=== PATIENT | female | born 1975 | race Caucasian/White ===

== ENCOUNTER 2022-12-05 01:15 | Emergency (ER) | payer OTHER, SELFPAY ==
[2022-12-05 01:23] VITALS: BP 107/73; PULSE 74; RESP 20; TEMP 36.7; O2SAT 97; BMI 22.3
--- NOTE | 2022-12-05 01:35 | CRLHL7_ITS ---
For Patients: As a result of the Century Cures Act, medical imaging exams and procedure reports are released immediately into your electronic medical record. You may view this report before your referring provider. If you have questions, please contact your health care provider. Indication: Lower abdominal pain Technique: Postcontrast CT abdomen and pelvis. 63 cc Isovue 370 intravenous contrast. Please note that all CT scans at this facility use dose modulation, iterative reconstruction, and/or weight-based dosing when appropriate to reduce radiation dose to as low as reasonably achievable. Comparison: None Findings: Mild dependent areas of atelectasis/scarring noted bilaterally. No pleural effusion. No free intraperitoneal air. No 8 millimeter hypodensity periphery of the right lung likely representing hemangioma or cyst. Gallbladder is nondistended. No biliary obstruction. Normal pancreas. Spleen normal. No hiatal hernia. Normal adrenal glands. Nonobstructing stone lower pole right kidney measures 3.2 millimeters. Nonobstructing stone upper pole left kidney measures 4 millimeters. No perinephric stranding. No suspicious renal mass. 9 millimeter simple left renal cyst. Ureters and bladder are normal. Normal uterus. No adnexal mass. Trace right pelvic free fluid. No bowel obstruction. Appendix normal. No diverticulitis. Small umbilical hernia containing omental fat measuring less than 1 cm. No fracture. No adenopathy. Impression: Nonobstructing renal calculi bilaterally. No adnexal mass. Trace pelvic free fluid considered physiologic. Please note that all CT scans at this facility use dose modulation, iterative reconstruction, and/or weight-based dosing when appropriate to reduce radiation dose to as low as reasonably achievable. Dictated by Mariano Salgado MD @ 12/05/2022 8:48:31 AM (Electronically Signed)
[2022-12-05] MEDS: KETOROLAC 30 MG/ML inj IVP ×2 (01:46→06:21)
[2022-12-05] MEDS: 0.9 % SODIUM CHLORIDE 1000 ml 1,000 ML IV (01:50)
[2022-12-05 01:55] LABS: Basophils Absolute Auto 0.04 K/uL (0.00-0.30); Basophils Percent Auto 0.6 % (0.0-3.0); Eosinophils Absolute Auto 0.14 K/uL (0.00-0.50); Eosinophils Percent Auto 2.2 % (0.0-7.0); Hematocrit 36.7 % (33.0-51.0); Hemoglobin* 12.2 gm/dL (12.0-16.0); Immature Granulocytes Abs Auto 0.01 K/uL (0.00-0.30); Immature Granulocytes Pct Auto 0.2 %; Lymphocytes Absolute Auto 2.55 K/uL (0.90-2.90); Lymphocytes Percent Auto 40.6 % (20-44); Mean Corpuscular HGB Conc 33 gm/dL (32-36); Mean Corpuscular Hemoglobin 30 pg (26-34); Mean Corpuscular Volume 90 fL (80-100); Monocytes Percent Auto 7.2 % (0.0-11.0); Neutrophils Absolute Auto 3.09 K/uL (1.7-7.0); Neutrophils Percent Auto 49.2 % (42.0-72.0); Platelet Count* 289 K/uL (140-440); RDW Coefficient of Variation % 13.5 % (11.5-15.5); Red Blood Count 4.06 m/uL (4.00-5.20); Slide Review Reflex No; White Blood Count* 6.28 K/uL (4.50-11.00)
[2022-12-05 02:07] LABS: Chloride* 106 mmol/L (96-114)
[2022-12-05 02:08] LABS: Potassium* 3.6 mmol/L (3.6-5.1); Sodium* 137 mmol/L (135-149)
[2022-12-05 02:10] LABS: Creatinine* 0.7 mg/dL (0.5-1.5); Est. Creatinine Clearance* 83.07; Estimated Glomerular Filt Rate 108 ml/min
[2022-12-05 02:11] LABS: Alanine Aminotransferase* 14 U/L (4-35); Alkaline Phosphatase* 50 U/L (40-150); Aspartate Amino Transferase* 18 U/L (12-35); Bilirubin Total* 0.2 mg/dL (0.1-1.5); Blood Urea Nitrogen* 13 mg/dL (5-24); Calcium* 9.3 mg/dL (8.4-10.6); Carbon Dioxide* 22 mmol/L (20-32); Glucose* 92 mg/dL (60-115); Total Protein* 6.9 g/dL (6.0-8.3)
[2022-12-05 02:14] LABS: C Reactive Protein* 1.1 mg/dL (0.5-1.0)
--- NOTE | 2022-12-05 02:25 | ED_ITS ---
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 Due to have a hysterectomy for her issues coming up in the next kerry h, she lives in [facility], has no nausea no vomiting no change in her bowel habits denies any fevers chills or sweats, it hurts her walk, or bend over. Did not take any Tylenol or ibuprofen or anything else for this. But just tried to tough it out by working. MD elicited complaint: abdominal pain Pertinent past history: other (Ovarian cysts) Pain Consistency: constant Location: suprapubic and pelvis Severity: moderate Quality: fullness and sharp Radiation: none Migration to: no migration Exacerbating factors: movement Relieving factors: nothing Context: history of similar episodes Associated symptoms: denies other symptoms Related Data Hx Last Menstrual Period: History of tubal ligation Patient : No Home Medications Medication Instructions Recorded Confirmed levothyroxine 100 mcg tablet 50 mcg PO DAILY 12/05/22 12/05/22 (Synthroid) Allergies Allergy/AdvReac Type Severity Reaction Status Date / Time No Known Drug Allergies Allergy Verified 12/05/22 01:30 Review of Systems Status of ROS Reports: 10 or more systems reviewed and unremarkable except as noted in History and below PFSH [facility] Medical History (Updated 12/05/22 @ 07:11 by Isra Kuhn MD) Hypothyroidism ?E03.9 - Hypothyroidism, unspecified (ICD-10) Surgical History (Updated 12/05/22 @ 01:33 by Marisela Leger RN) History of conization of cervix ?Z98.890 - Other specified postprocedural states (ICD-10) Tubal ligation status ?Z98.51 - Tubal ligation status (ICD-10) Social History Non-prescribed substance use: denies use Exam Narrative: Exam Narrative: Patient is seen in room 5, she is in some moderate distress, pupils equal round reactive to light there is no scleral icterus or redness her TMs bilaterally are normal, oropharynx normal her neck is supple, her chest is clear heart sounds are normal. Abdomen shows tenderness in her lower abdominal region, quiet bowel sounds, no organomegaly is noted, no CVA tenderness. Moves all extremities independently and well. Const: Vital Signs, click to edit/add: Vital Signs - 24 hr 12/05/22 01:23 Temperature 98.1 F Pulse Rate [Pulse Oximeter] 74 Respiratory Rate 20 Blood Pressure [Ri ght Upper Arm] 107/73 Pulse Oximetry 97 Oxygen Delivery Me thod Room Air Documenting provider has reviewed patient's vital signs: yes Course Course Hospital Course: Discussed ultrasound with the radiologist, no evidence of significant ovarian i ssue, good blood flow, and small amount of fluid, this most likely represents the ruptured ovarian cyst. Discussed this with the patient we will send her home, with some pain medication, ibuprofen, and follow up with her primary care, Vital Signs Vital signs: Initial Vital Signs Temperature 98.1 F 12/05/22 01:23 Temperature Source Temporal Artery Scan 12/05/22 01:23 Pulse Rate 74 12/05/22 01:23 Respiratory Rate 20 12/05/22 01:23 Blood Pressure 107/73 12/05/22 01:23 Blood Pressure Mean 84 12/05/22 01:23 Pulse Oximetry 97 12/05/22 01:23 Oxygen Delivery Method Room Air 12/05/22 01:23 Vital Signs Temperature 98.1 F 12/05/22 01:23 Pulse Rate 74 12/05/22 01:23 Respiratory Rate 20 12/05/22 01:23 Blood Pressure 107/73 12/05/22 01:23 Pulse Oximetry 97 12/05/22 01:23 Oxygen Delivery Method Room Air 12/05/22 01:23 Temperature 98.1 F 12/05/22 01:23 Pulse Rate 74 12/05/22 01:23 Respiratory Rate 20 12/05/22 01:23 Blood Pressure 107/73 12/05/22 01:23 Pulse Oximetry 97 12/05/22 01:23 Oxygen Delivery Method Room Air 12/05/22 01:23 MDM - Abdominal Pain MDM Narrative Medical decision making narrative: During the evaluation of this patient I considered multiple differential diagnosis including life-threatening differentials which are appendicitis, a ortic aneurysm, mesenteric ischemia, bowel perforation, ectopic , volvulus and bowel obstruction, other differential diagnosis include but are not limited to inflammatory bowel disease, cholecystitis, pancreatitis, hepatitis, gastritis, GERD, diverticulitis, peptic ulcer disease, pyelonephritis/UTI, renal colic/stone, pelvic inflammatory disease, cervicitis, endometritis, intrauterine , dysfunctional uterine bleeding, ovarian cyst/torsion, spontaneous as well as other etiologies Medical Records Attestation: I reviewed the patient's medical records. Lab Data Labs: Lab Results 12/05/22 12/05/22 Range/Units 01:45 05:50 WBC 6.28 (4.50-11.00) K/uL RBC 4.06 (4.00-5.20) m/uL Hgb 12.2 (12.0-16.0) gm/dL Hct 36.7 (33.0-51.0) % MCV 90 (80-100) fL MCH 30 (26-34) pg MCHC 33 (32-36) gm/dL RDW Coeff of Anoop 13.5 (11.5-15.5) % Plt Count 289 (140-440) K/uL Neut % (Auto) 49.2 (42.0-72.0) % Lymph % (Auto) 40.6 (20-44) % [place] % (Auto) 7.2 (0.0-11.0) % Eos % (Auto) 2.2 (0.0-7.0) % Baso % (Auto) 0.6 (0.0-3.0) % Neut # (Auto) 3.09 (1.7-7.0) K/uL Lymph # (Auto) 2.55 (0.90-2.90) K/uL [place] # (Auto) 0.50 (0.00-0.90) K/UL Eos # (Auto) 0.14 (0.00-0.50) K/uL Baso # (Auto) 0.04 (0.00-0.30) K/uL Abs Immat Gran (auto) 0.01 (0.00-0.30) K/uL Imm/Tot Granulo (auto) 0.2 % Sodium 137 (135-149) mmol/L Potassium 3.6 (3.6-5.1) mmol/L Chloride 106 (96-114) mmol/L Carbon Dioxide 22 (20-32) mmol/L BUN 13 (5-24) mg/dL Creatinine 0.7 (0.5-1.5) mg/dL Estimated Creat Clear 83.07 Estimated GFR 108 ml/min Glucose 92 (60-115) mg/dL Calcium 9.3 (8.4-10.6) mg/dL Total Bilirubin 0.2 (0.1-1.5) mg/dL Direct Bilirubin 0.0 (0.0-0.5) mg/dL AST 18 (12-35) U/L ALT 14 (4-35) U/L Alkaline Phosphatase 50 (40-150) U/L C-Reactive Protein 1.1 H (0.5-1.0) mg/dL Total Protein 6.9 (6.0-8.3) g/dL Albumin 4.0 (3.3-5.0) g/dL Urine Color Yellow (Yellow) Urine Appearance Clear (Clear) Urine pH 6.0 (5.0-8.5) Ur Specific [place] 1.010 (1.000-1.030) Urine Protein Negative (Negative) Urine Glucose (UA) Negative (Negative) Urine Ketones Negative (Negative) Urine Blood Negative (Negative) Urine Nitrite Negative (Negative) Urine Bilirubin Negative (Negative) Urine Urobilinogen 0.2 (0.2-1.0) Ur Leukocyte Esterase Negative (Negative) Urine RBC 0-2 (0-2) Urine WBC 0-2 (0-5) Ur Squamous Epith Cells Moderate A (None-Few) Urine Bacteria Few A (None) Discharge Plan Discharge Clinical Impression: Ovarian cyst rupture, Abdominal pain Patient Disposition: Home, Self-Care Condition: Stable Instructions: Ovarian Cyst (ED), Abdominal Pain (ED) Additional Instructions: Home,rest and use of Ibuprofen, and or acetaminophen. Follow up with your provider. Small amount of free fluid that likely is the remants of the ruptured ovarian cyst. Return if worsening pain, fever, chills, or other issues. Activity Level: Light activity Prescriptions: No Action levothyroxine [Synthroid] 100 mcg tablet 50 mcg PO DAILY Follow Up/Referrals: Provider,Not a Local [Primary Care Provider] - Stand Alone Forms: [employer] Info Instructions
[2022-12-05 06:13] LABS: Appearance Urine Clear (Clear); Bilirubin Urine Negative (Negative); Blood Urine Negative (Negative); Color Urine Yellow (Yellow); Glucose Urine Negative (Negative); Ketones Urine Negative (Negative); Leukocyte Esterase Urine Negative (Negative); Nitrite Urine Negative (Negative); Protein Urine Negative (Negative); Urobilinogen Urine 0.2 (0.2-1.0)
[2022-12-05] MEDS: ACETAMINOPHEN 500 MG TABLET 1000 MG PO (06:20)
[2022-12-05 06:21] LABS: Bacteria Urine Few; RBC Urine 0-2 (0-2); Squamous Epithelial Cell Urine Moderate (None-Few); WBC Urine 0-2 (0-5)
--- NOTE | 2022-12-05 06:30 | CRLHL7_ITS ---
For Patients: As a result of the Century Cures Act, medical imaging exams and procedure reports are released immediately into your electronic medical record. You may view this report before your referring provider. If you have questions, please contact your health care provider. CLINICAL HISTORY: Pain Comparison CT same day TECHNIQUE: 2D fall scale ultrasound. In addition color Doppler and spectral Doppler analysis was performed of the pelvis using a transabdominal and transvaginal approach. FINDINGS: On transvaginal imaging, the myometrium has a mildly heterogeneous uniform echotexture. The uterus measures 7.4 x 4.2 x 5.0 cm. The endometrial lining appears normal and measures 6.8 mm in thickness. The right ovary measures 1.5 x 0.9 x 1.7 cm in size and the left ovary measures 2.6 x 1.6 x 2.2 cm. The ovaries demonstrate normal arterial and venous blood flow on color Doppler and spectral Doppler analysis. Trace pelvic free fluid noted considered physiologic. IMPRESSION: No evidence of ovarian torsion or adnexal mass. No suspicious ovarian cyst. Dictated by Mariano Salgado MD @ 12/05/2022 8:33:35 AM (Electronically Signed)
[2022-12-05 08:28] VITALS: BP 110/60; PULSE 68; RESP 18; TEMP 36.6; O2SAT 98
== END 2022-12-05 08:29 | disposition home or self-care (01) ==
PROVIDERS: Emergency Provider Family Medicine
DX: N83.209 Unspecified ovarian cyst, unspecified side (principal); R10.9 Unspecified abdominal pain
CPT/HCPCS: 36415; 74177; 76830; 80048; 80076; 81001; 85025; 86140; 87086; 93976; 96361; 96374; 96375; 96376; 99284; 99285; A9270; J1885; J7030; Q9967